=== PATIENT | male | born 2000 | race Two or more races ===

== ENCOUNTER 2024-06-27 20:56 | Emergency (ER) | payer MEDICAID, OTHER ==
[~2024-06-27] VITALS: Ht 170.2 cm; Wt 72.6 kg
[2024-06-28 01:04] LABS: BASOPHILS % (AUTO) 0.1 % (0.0-2.0); EOSINOPHILS % (AUTO) 0.1 % (0.0-6.0); HEMATOCRIT 45 % (39-51); HEMOGLOBIN 15.5 g/dL (13.5-17.5); LYMPHOCYTES # (AUTO) 0.3 K/uL (0.8-4.8); LYMPHOCYTES % (AUTO) 7.8 % (20.0-44.0); MEAN CORPUSCULAR HEMOGLOBIN 30 PG (26.0-33.0); MEAN CORPUSCULAR HGB CONC 34 g/dl (31.0-36.0); MEAN CORPUSCULAR VOLUME 88 fL (80-96); MONOCYTES # (AUTO) 0.5 K/uL (0.1-1.30); MONOCYTES % (AUTO) 10.3 % (2.0-12.0); NEUTROPHILS # (AUTO) 3.6 K/uL (1.8-8.9); NEUTROPHILS % (AUTO) 81.7 % (43.0-81.0); PLATELET COUNT (AUTO) 119 K/uL (150-450); RED BLOOD CELL COUNT(AUTO) 5.16 MIL/uL (4.5-6.0); RED CELL DISTRIBUTION WIDTH 12.2 % (11.5-15.0); WHITE BLOOD COUNT (AUTO) 4.4 K/uL (4.3-11.0)
[2024-06-28 01:11] LABS: CREATININE 1.1 mg/dL (0.6-1.3); POTASSIUM 3.9 mmol/L (3.5-5.1)
[2024-06-28 01:18] LABS: ALBUMIN 3.2 g/dL (3.4-5.0); BILIRUBIN,DIRECT 0.2 mg/dL (0.0-0.2); BILIRUBIN,TOTAL 0.8 mg/dL (0.2-1.0)
[2024-06-28] MEDS: IV NS 0.9% 1,000 ML BAG IV ONE (01:22)
[2024-06-28 02:04] VITALS: BP 132/78; TEMP 99.3; O2SAT 98
== END 2024-06-28 02:05 | disposition home or self-care (01) ==
LOC: ER 21:43
DX: R19.7 Diarrhea, unspecified (principal); R11.10 Vomiting, unspecified
CPT/HCPCS: 99283; 96360; 85025; 80048; 83690; 80076; 36415; J7030